=== PATIENT | male | born 1945 | race Caucasian/White ===

== ENCOUNTER 2017-09-02 09:34 | Outpatient (CLI) | payer MEDICARE ==
--- NOTE | 2017-09-02 10:53 | RAD ---
TWO VIEWS OF CHEST: COMPARISON: None. HISTORY: Severe pain between the shoulders for 2 months. Assess for tuberculosis. Previous TB exposure. FINDINGS: Two views of the chest show a normal-size cardiomediastinal silhouette. A left subclavian pacemaker is seen with its leads in the right atrium and ventricle. There is no evidence of consolidation, mas s, or pleural effusion. Degenerative changes are seen in the spine. IMPRESSION: No evidence of acute cardiopulmonary disease. POS: [facility]
== END 2017-09-02 09:35 | disposition home or self-care (01) ==
LOC: SCSRAD 09:34
PROVIDERS: ATTEND Family Medicine
DX: M54.6 Pain in thoracic spine (principal)
CPT/HCPCS: 71046

== ENCOUNTER 2017-12-02 12:42 | Outpatient (CLI) | payer MEDICARE ==
[2017-12-02] MEDS ORDERED: ISOVUE-370 76%-LOCM 1 ML ONE (15:52)
== END 2017-12-02 12:43 | disposition home or self-care (01) ==
LOC: BICCT 12:42
PROVIDERS: ATTEND Family Medicine
DX: R93.1 Abnormal findings on diagnostic imaging of heart and coronary circulation (principal); E04.2 Nontoxic multinodular goiter; N28.1 Cyst of kidney, acquired; S32.019A Unspecified fracture of first lumbar vertebra, initial encounter for closed fracture
CPT/HCPCS: 71260

== ENCOUNTER 2018-09-24 16:00 | Outpatient (CLI) | payer MEDICARE ==
--- NOTE | 2018-09-24 17:33 | RAD ---
LEFT SHOULDER THREE VIEWS: 09/24/18 HISTORY: Acute left shoulder pain. There is a left ICD. No acute fracture or dislocation or other significant acute osseous abnormality. IMPRESSION: No significant acute osseous abnormality. Mild degenerative changes. Left ICD. POS: [facility]
== END 2018-09-24 16:01 | disposition home or self-care (01) ==
LOC: SCSRAD 16:00
PROVIDERS: ATTEND Family Medicine
DX: M25.512 Pain in left shoulder (principal); M19.012 Primary osteoarthritis, left shoulder